=== PATIENT | male | born 1935 | race Caucasian/White ===

== ENCOUNTER → 2016-10-11 | Outpatient (CLI) | payer OTHER ==
[~2016-10-11] MED LIST: ALEVE220 MG PO; ATORVASTATIN CA80 MG PO; COLACE100 MG PO; HYDROCODON-ACE1 EAC7 PO; Keflex PO; LANTUS 10100 UNITS/ SC; LISINOPRIL5 MG PO; NORCO 5/3251 TABLET PO; NOVOLOG 10100 UNITS/ SC; NOVOLOG PE100 UNITS/ SC; SYNTHROID150 MCG PO; Vicodin,Lortab 5/500 PO; ZETIA10 MG PO
== END | disposition home or self-care (01) ==
LOC: RAD 09:00
DX: E03.2 Hypothyroidism due to medicaments and other exogenous substances (principal)
CPT/HCPCS: 76536

== ENCOUNTER → 2017-10-11 | Outpatient (CLI) | payer OTHER | END | disposition home or self-care (01) | LOC: RAD 09:43 | DX: E04.2 Nontoxic multinodular goiter (principal) | CPT/HCPCS: 76536 ==

== ENCOUNTER 2018-03-03 20:54 | Emergency (ER) | payer OTHER ==
[~2018-03-03] VITALS: Ht 165.1 cm; Wt 101.9 kg
[~2018-03-03 20:54] MED LIST changes: -ATORVASTATIN CA80 MG PO; +LIPITOR20 MG PO
[2018-03-03 21:41] LABS: BASOPHIL (%) 0.2 % (0-1); EOSINOPHIL (%) 0.4 % (0-5); EOSINOPHIL COUNT 0.1 K/uL (0-0.3); HEMATOCRIT 27.4 % (38.0-50.0); HEMOGLOBIN 9.3 G/DL (12.5-16.6); IMMATURE GRANULOCYTE (%) 1.6 % (0.0-0.7); LYMPHOCYTE (%) 7.9 % (15-42); MCH 31.1 PG (29.0-34.0); MCHC 33.9 G/DL (30.0-36.0); MCV 91.6 FL (86-99); MONOCYTE (%) 16.8 % (3-12); MONOCYTE COUNT 2.1 K/uL (0-0.8); NEUTROPHIL (%) 73.1 % (45-76); PLATELET COUNT 131 K/uL (156-360); RBC DIS.WIDTH-CV 13.4 % (11.8-14.6); RED BLOOD COUNT 2.99 M/uL (4.00-5.50); WHITE BLOOD COUNT 12.4 K/uL (4.1-10.2)
[2018-03-03 21:53] LABS: ALBUMIN 3.2 g/dL (3.2-4.8); CHLORIDE 100 mEq/L (99-109)
[2018-03-03 21:55] LABS: GLUCOSE 299 mg/dL (70-99); TOTAL PROTEIN 7.5 g/dL (6.4-8.3)
[2018-03-03 21:57] LABS: TOTAL BILIRUBIN 0.6 mg/dL (0.0-1.0)
[2018-03-03 21:59] LABS: ALKALINE PHOSPHATASE 82 IU/L (3-129); CREATININE 1.1 mg/dL (0.6-1.3); GFR ESTIMATE (CALCULATED) > 59 mL/min/ (58.99-99999)
[2018-03-03 22:00] LABS: UREA NITROGEN (BUN) 24 mg/dL (9-23)
[2018-03-03 22:01] LABS: AST (GOT) 13 IU/L (2-34); DIRECT BILIRUBIN 0.3 mg/dL (0.0-0.3)
[2018-03-03 22:02] LABS: ALT (GPT) 12 IU/L (3-49)
[2018-03-03 22:03] LABS: TROP-I INTERPRETATION NEGATIVE; TROPONIN-I < 0.01 ng/mL (0.0-0.30)
[2018-03-03 22:20] LABS: SODIUM 130 mEq/L (136-147)
[2018-03-03 22:34] LABS: LIPASE 40 U/L (1.0-51.0)
[2018-03-03 23:16] LABS: APPEARANCE CLEAR ((CLEAR)); BILIRUBIN NEGATIVE; BLOOD NEGATIVE; COLOR YELLOW ((YELLOW)); GLUCOSE (STRIP) 150; KETONES NEGATIVE; LEUKOCYTES NEGATIVE; NITRITE NEGATIVE; PROTEIN (STRIP) 30; UCUL ADDED? NO; UROBILINOGEN 0.2 MG/DL (0.2-1.0)
[2018-03-04 03:12] VITALS: BP 114/57
[2018-03-06] MEDS ORDERED: LANTUS 10100 UNITS/ SC (15:26)
[2018-03-06] MEDS ORDERED: IRON325 M1 PO (15:27)
[2018-03-06] MEDS ORDERED: NOVOLOG 10100 UNITS/ SC (15:28)
[2018-03-06] MEDS ORDERED: VITAMIN D22000 UNIT PO (15:31)
[2018-03-06] MEDS ORDERED: ZOFRAN4 MG PO (15:31)
== END 2018-03-04 03:17 | disposition home or self-care (01) ==
LOC: EME 20:54
PROVIDERS: Emergency Medicine
DX: E11.65 Type 2 diabetes mellitus with hyperglycemia (principal); R42 Dizziness and giddiness; E04.1 Nontoxic single thyroid nodule; R63.0 Anorexia; Z79.4 Long term (current) use of insulin; I10 Essential (primary) hypertension; K21.9 Gastro-esophageal reflux disease without esophagitis; Z87.891 Personal history of nicotine dependence
CPT/HCPCS: 70450; 71045; 71260; 80048; 80076; 81003; 82948; 83690; 84484; 85025; 93005; 99281; 99284; J2405; J7030